=== PATIENT | male | born 1975 | race Caucasian/White ===

== ENCOUNTER 2019-11-11 12:19 | Inpatient (IN) | payer OTHER ==
--- NOTE | 2019-11-11 14:38 | BHS.RME ---
Substance Use & Tx History - Substance Use History Alcohol Substance amount: 2 pints Vodka Frequency of use: Daily Substance route: Oral Date of Last Use: 11/11/19 (First use age 12 y. No seizue. Possible black outs. Admits to eye integration lead) Heroin Substance amount: 6-10 bags Frequency of use: Daily Substance route: Injection (ex: intravenous or skin popping) Date of Last Use: 11/11/19 (First use age 19y. NO OD, no Narcan) Cocaine-Crack Substance amount: 4 gabs Frequency of use: Less than 3 times per week Substance route: Smoking Date of Last Use: 11/09/19 (First use age 20y) Nicotine Substance amount: 1/2 pack Frequency of use: Daily Substance route: Smoking Date of Last Use: 11/11/19 (First use age 12 y) - Last Treatment Date of last treatment: 5 mos ago [facility], 2 day detox and left Physical/Psych/Mental Status - Behavior General Behavior: Increased activity (restlessness, agitation) Eye Contact: Normal - Cooperativeness Cooperativeness: Cooperative - Thinking Thought Processes: Tight Thought content: Future oriented - Physical Health Problems Is patient presently having any pain?: No Does patient presently have any injuries (include location): No Does patient currently have a fever: No COWS - Scale Resting Pulse: 1= [place] 81-100 Sweatin= Chills/Flushing Restless Observation: 1= Difficult to Sit Still Pupil Size: 0= Normal to Room Light Bone or Joint Aches: 1= Mild Discomfort Runny Nose/ Eye Tearin= None GI Upset > 30mins: 2= Nausea/Diarrhea Tremor Observation: 0= None Yawning Observation: 0= None Anxiety or Irritability: 0= None Goose Flesh Skin: 0=Smooth Skin COWS Score: 6 CIWA Nausea/Vomitin Muscle Tremors: None Anxiety: 0-No Anxiety, at Ease Agitation: 0-Normal Activity Paroxysmal Sweats: 2 Orientation: 0-Oriented Tacttile Disturbances: 0-None Auditory Disturbances: 2-Mild Harshness/Frighten Visual Disturbances: 2-Mild Sensitivity Headache: 0-None Present CIWA-Ar Total Score: 9
[2019-11-11 14:58] VITALS: BMI 20.9
--- NOTE | 2019-11-11 15:22 | HP ---
<Merry Roberson - Last Filed: 11/11/19 15:33> COWS - Scale Resting Pulse: 1= [place] 81-100 Sweatin= Chills/Flushing Restless Observation: 1= Difficult to Sit Still Pupil Size: 0= Normal to Room Light Bone or Joint Aches: 1= Mild Discomfort Runny Nose/ Eye Tearin= None GI Upset > 30mins: 2= Nausea/Diarrhea Tremor Observation: 0= None Yawning Observation: 0= None Anxiety or Irritability: 0= None Goose Flesh Skin: 0=Smooth Skin COWS Score: 6 CIWA Score Nausea/Vomitin Muscle Tremors: None Anxiety: 0-No Anxiety, at Ease Agitation: 0-Normal Activity Paroxysmal Sweats: 2 Orientation: 0-Oriented Tacttile Disturbances: 0-None Auditory Disturbances: 2-Mild Harshness/Frighten Visual Disturbances: 2-Mild Sensitivity Headache: 0-None Present CIWA-Ar Total Score: 9 - Admission Criteria [facility] Guidelines: Admission for Medically Managed Detox: Requires at least one of the followin. CIWA greater than 12 2. Seizures within the past 24 hours 3. Delirium tremens within the past 24 hours 4. Hallucinations within the past 24 hours 5. Acute intervention needed for co occurring medical disorder 6. Acute intervention needed for co occurring psychiatric disorder 7. Severe withdrawal that cannot be handled at a lower level of care (continued vomiting, continued diarrhea, abnormal vital signs) requiring intravenous medication and/or fluids 8. Admitting History and Physical - Admission Chief Complaint: Mr Sandoval a 44 yo man presents to [facility] for detox. History of Present Illness: Mr Sandoval a 44 yo man presents to [facility] for detox. PMH: Hepatitis C untrested PSH: Left eye; had a weak muscle treated as child. Psych Hx: None SHX: Homeless Legal: None Substance Use & Tx History - Substance Use History Alcohol Substance amount: 2 pints Vodka Frequency of use: Daily Substance route: Oral Date of Last Use: 11/11/19 (First use age 12 y. No seizue. Possible black outs. Admits to eye market research coordinator) Heroin Substance amount: 6-10 bags Frequency of use: Daily Substance route: Injection (ex: intravenous or skin popping) Date of Last Use: 11/11/19 (First use age 19y. NO OD, no Narcan) Cocaine-Crack Substance amount: 4 gabs Frequency of use: Less than 3 times per week Substance route: Smoking Date of Last Use: 11/09/19 (First use age 20y) Nicotine Substance amount: 1/2 pack Frequency of use: Daily Substance route: Smoking Date of Last Use: 11/11/19 (First use age 12 y) - Last Treatment Date of last treatment: 5 mos ago [facility], 2 day detox and left History Source: Patient Limitations to Obtaining History: No Limitations - Smoking History Smoking history: Current every day smoker Have you smoked in the past 12 months: Yes Aproximately how many cigarettes per day: 10 - Alcohol/Substance Use Hx Alcohol Use: Yes (occasional binge drinking) Admission [facility] Allergies/Adverse Reactions: Allergies Allergy/AdvReac Type Severity Reaction Status Date / Time No Known Allergies Allergy Verified 11/11/19 14:47 Exam Limitations: No Limitations - Ebola screening Have you traveled outside of the country in the last 21 days: No Have you been sick,other than usual withdrawal symptoms: No Do you have a fever: No - Review of Systems Constitutional: Chills EENT: reports: No Symptoms Reported Respiratory: reports: No Symptoms reported Cardiac: reports: No Symptoms Reported GI: reports: No Symptoms Reported : reports: No Symptoms Reported Musculoskeletal: reports: No Symptoms Reported Integumentary: reports: No Symptoms Reported Neuro: reports: No Symptoms reported Endocrine: reports: No Symptoms Reported Hematology: reports: No Symptoms Reported Psychiatric: reports: No Sypmtoms Reported Other Systems: Reviewed and Negative Patient History - Patient Medical History Hx Anemia: No Hx Asthma: No Hx Chronic Obstructive Pulmonary Disease (COPD): No Hx Cancer: No Hx Cardiac Disorders: No Hx Congestive Heart Failure: No Hx Hypertension: No Hx Hypercholesterolemia: No Hx Pacemaker: No HX Cerebrovascular Accident: No Hx Seizures: No Hx Dementia: No Hx Diabetes: No Hx Gastrointestinal Disorders: No Hx Liver Disease: No Hx Genitourinary Disorders: No Hx Sexually Transmitted Disorders: No Hx Renal Disease (ESRD): No Hx Thyroid Disease: No Hx Human Immunodeficiency Virus (HIV): No Hx Hepatitis C: Yes Hx Depression: No Hx Suicide Attempt: No Hx Schizophrenia: No - Patient Surgical History Past Surgical History: No Hx Neurologic Surgery: No Hx Cataract Extraction: No Hx Cardiac Surgery: No Hx Lung Surgery: No Hx Breast Surgery: No Hx Breast Biopsy: No Hx Abdominal Surgery: No Hx Appendectomy: No Hx Cholecystectomy: No Hx Genitourinary Surgery: No Hx Section: No Hx Orthopedic Surgery: No Anesthesia Reaction: No - PPD History Previous Implant?: No Documented Results: Negative w/o proof Date: 08/06/13 PPD to be Administered?: Yes - Smoking Cessation Smoking history: Current every day smoker Have you smoked in the past 12 months: Yes Aproximately how many cigarettes per day: 10 Cigars Per Day: 0 Hx Chewing Tobacco Use: No Initiated information on smoking cessation: Yes 'Breaking Loose' booklet given: 11/11/19 - Substance & Tx. History Hx Substance Use: Yes - Substances abused Heroin Substance route: Injection Frequency: Daily Amount used: 6-7 BAGS Age of first use: 19 Date of last use: 11/11/19 Admission Physical Exam [facility] - Vital Signs Vital Signs: Vital Signs - 24 hr 11/11/19 14:55 Temperature 97.1 F L Pulse Rate 85 Respiratory 18 Rate Blood Pressure 125/79 - Physical General Appearance: Yes: No Apparent Distress, Nourished, Appropriately Dressed HEENTM: Yes: Within Normal Limits, Hearing grossly Normal, Normocephalic, Normal Voice Respiratory: Yes: Within Normal Limits, Chest Non-Tender, Lungs Clear, Normal Br eath Sounds, No Respiratory Distress, No Accessory Muscle Use Neck: Yes: Within Normal Limits, No masses,lesions,Nodules, Supple, Trachea in good position Cardiology: Yes: Within Normal Limits, Regular Rhythm, Regular Rate, S1, S2 Abdominal: Yes: Within Normal Limits, Normal Bowel Sounds, Non Tender, Flat, Soft Back: Yes: Within Normal Limits, Normal Inspection Musculoskeletal: Yes: Within Normal Limits Neurological: Yes: Fully Oriented Integumentary: Yes: Within Normal Limits, Normal Color - Diagnostic (1) Opioid withdrawal Current Visit: Yes Status: Acute (2) Cocaine dependence Current Visit: Yes Status: Acute (3) Hepatitis C Current Visit: Yes Status: Chronic (4) Nicotine dependence Current Visit: Yes Status: Acute Qualifiers: Nicotine product type: cigarettes Substance use status: uncomplicated Qualified Code(s): F17.210 - Nicotine dependence, cigarettes, uncomplicated (5) Alcohol dependence with withdrawal, uncomplicated Current Visit: Yes Status: Acute Cleared for Admission S - Detox or Rehab [facility] Level of Care: Medically Managed Detox Regimen/Protocol: Methadone/Librium Breathalyzer - Breathalyzer Breathalyzer: 0 Urine Drug Screen - Test Device Lot number: [id number] Expiration date: 01/10/21 - Control Is test valid?: Yes - Results Drug screen NEGATIVE: No Urine drug screen results: DONN-Cocaine, FEN-Fentanyl, MOP-Opiates Inpatient Rehab Admission - Rehab Decision to Admit Inpatient rehab admission?: No <Priya Alegria - Last Filed: 11/12/19 08:08> CIWA Score - Admission Criteria [facility] Guidelines: Admission for Medically Managed Detox: Requires at least one of the followin. CIWA greater than 12 2. Seizures within the past 24 hours 3. Delirium tremens within the past 24 hours 4. Hallucinations within the past 24 hours 5. Acute intervention needed for co occurring medical disorder 6. Acute intervention needed for co occurring psychiatric disorder 7. Severe withdrawal that cannot be handled at a lower level of care (continued vomiting, continued diarrhea, abnormal vital signs) requiring intravenous medication and/or fluids 8. Admission Physical Exam [facility] - Vital Signs Vital Signs: Vital Signs - 24 hr 11/11/19 11/11/19 11/11/19 14:55 16:30 20:35 Temperature 97.1 F L 98.4 F 98.7 F Pulse Rate 85 80 82 Respiratory 18 18 18 Rate Blood Pressure 125/79 127/80 127/91 O2 Sat by Pulse 95 97 Oximetry (%) 11/12/19 11/12/19 11/12/19 01:02 03:30 06:43 Temperature 98.2 F Pulse Rate 71 Respiratory 16 18 16 Rate Blood Pressure 132/81 O2 Sat by Pulse 95 Oximetry (%) Teaching Attending Note Name of Resident: Merry Roberson ATTENDING PHYSICIAN STATEMENT I saw and evaluated the patient. I reviewed the resident's note and discussed the case with the resident. I agree with the resident's findings and plan as documented. SUBJECTIVE: Alcohol and heroin use OBJECTIVE: Withdrawal symptoms ASSESSMENT AND PLAN: Admit for methadone and librium protocol
[2019-11-11] MEDS ORDERED: chlordiazePOXIDE HCL 25 MG CAPSULE PO PRN (15:55)
[2019-11-11] MEDS ORDERED: BISMUTH SUBSALICYLATE 524 MG/30 ML UD PO PRN (15:55)
[2019-11-11] MEDS ORDERED: ONDANSETRON *ODT* 4 MG TABLET SL PRN (15:55)
[2019-11-11] MEDS ORDERED: MAG HYDROX/AL HYDROX/SIMETH 30 ML UNIT-DOSE CUP PO PRN (15:55)
[2019-11-11] MEDS ORDERED: ACETAMINOPHEN 325 MG TABLET (FP) PO PRN ×2 (15:55)
[2019-11-11] MEDS ORDERED: METHOCARBAMOL 500 MG TABLET PO PRN (15:55)
[2019-11-11] MEDS ORDERED: NICOTINE POLACRILEX 2 MG GUM BUC PRN (15:55)
[2019-11-11] MEDS ORDERED: MAGNESIUM CITRATE 300 ML BOTTLE PO PRN (15:55)
[2019-11-11] MEDS ORDERED: cloNIDine HCL 0.1 MG TABLET PO PRN (15:55)
[2019-11-11] MEDS ORDERED: METHADONE HCL 10 MG TABLET (FOR DETOX USE ONLY) PO ONE (15:55)
[2019-11-11] MEDS ORDERED: MENTHOL/PHENOL 1 EACH UD MM PRN (15:55)
[2019-11-11] MEDS ORDERED: MAGNESIUM HYDROX 2400MG/30ML ORAL SUSPENSION 30 ML CUP PO PRN (15:55)
[2019-11-11] MEDS ORDERED: IBUPROFEN 400 MG TABLET (FP) PO PRN (15:55)
[2019-11-11] MEDS ORDERED: TUBERCULIN PPD 5 TU/0.1ML VIAL ID ONE (17:00)
[2019-11-11] MEDS: hydrOXYzine PAMOATE 25 MG CAPSULE (FP) PO SCH ×2 (17:02→22:18)
[2019-11-11] MEDS: chlordiazePOXIDE HCL 25 MG CAPSULE PO SCH ×2 (17:02→22:19)
[2019-11-11] MEDS: NICOTINE 14 MG/24 HOURS TOPICAL PATCH TD SCH (17:02)
[2019-11-11] MEDS: PRENATAL VITAMINS W/ FOLIC ACID TABLET (FP) PO SCH (17:09)
[2019-11-11] MEDS: MELATONIN 5 MG TABLETS PO SCH (22:18)
[2019-11-11] MEDS: THIAMINE HCL 100 MG TABLET (FP) PO SCH (22:19)
[2019-11-12] MEDS: hydrOXYzine PAMOATE 25 MG CAPSULE (FP) PO SCH ×5 (06:59→23:25)
[2019-11-12] MEDS: chlordiazePOXIDE HCL 25 MG CAPSULE PO SCH ×2 (07:00→10:29)
[2019-11-12] MEDS ORDERED: METHADONE HCL 5 MG TABLET (FOR DETOX USE ONLY) ONE (08:23)
[2019-11-12] MEDS ORDERED: METHADONE HCL 10 MG TABLET (FOR DETOX USE ONLY) ONE (08:23)
[2019-11-12] MEDS ORDERED: METHADONE (DETOX) 20 MG, METHADONE (DETOX) 5 MG PO ONE (10:00)
[2019-11-12] MEDS: NICOTINE 14 MG/24 HOURS TOPICAL PATCH TD SCH (10:28)
[2019-11-12] MEDS: PRENATAL VITAMINS W/ FOLIC ACID TABLET (FP) PO SCH (10:28)
[2019-11-12 10:42] LABS: ALBUMIN 3.3 g/dl (3.4-5.0); BILIRUBIN,TOTAL 2.2 mg/dL (0.2-1); BLOOD UREA NITROGEN 9.4 mg/dL (7-18); CALCIUM 9.2 mg/dL (8.5-10.1); CREATININE 0.7 mg/dL (0.55-1.3)
[2019-11-12 10:47] LABS: HEMATOCRIT 42.1 % (35.4-49); HEMOGLOBIN 13.8 GM/dL (11.7-16.9); MCH 30.6 pg (25.7-33.7); MCHC 32.9 g/dl (32.0-35.9); MEAN CELL VOLUME 93.3 fl (80-96); MEAN PLT VOLUME 12.1 fl (7.5-11.1); PLATELET COUNT 167 K/MM3 (134-434); RBC 4.51 M/mm3 (4.00-5.60); RDW 15.8 % (11.9-15.9); WHITE BLOOD COUNT 5.5 K/mm3 (4.0-10.0)
--- NOTE | 2019-11-12 11:25 | PN ---
[facility] CIWA - CIWA Score Nausea/Vomitin-No Nausea/No Vomiting Muscle Tremors: 3 Anxiety: 4-Mod. Anxious/Guarded Agitation: 4-Moderately Restless Paroxysmal Sweats: 1-Minimal Palms Moist Orientation: 0-Oriented Tacttile Disturbances: 0-None Auditory Disturbances: 0-None Visual Disturbances: 0-None Headache: 0-None Present CIWA-Ar Total Score: 12 S COWS - Scale Resting Pulse: 0= [place] 80 or Below Sweatin= Chills/Flushing Restless Observation: 3= Extraneous Movement Pupil Size: 0= Normal to Room Light Bone or Joint Aches: 1= Mild Discomfort Runny Nose/ Eye Tearin= None GI Upset > 30mins: 0= None Tremor Observation of Outstretched Hands: 2= Slight Tremor Visible Yawning Observation: 0= None Anxiety or Irritability: 1=Feels Anxious/Irritable Goose Flesh Skin: 0=Smooth Skin COWS Score: 8 S Progress Note (SOAP) Subjective: Pt is a 44 y/o male admitted to detox for alcohol and heroin withdrawal sx. Pt on Meth/Stephanie regimen. c/o Tremors anxiety sweats chills Objective: 11/12/19 11:22 Vital Signs - 8 hr 11/12/19 11/12/19 03:30 06:43 Temperature 98.2 F Pulse Rate 71 Respiratory 18 16 Rate Blood Pressure 132/81 O2 Sat by Pulse 95 Oximetry (%) Laboratory Tests 11/11/19 11/12/19 11/12/19 15:30 08:30 08:30 WBC 5.5 RBC 4.51 Hgb 13.8 Hct 42.1 MCV 93.3 MCH 30.6 MCHC 32.9 RDW 15.8 D Plt Count 167 D MPV 12.1 H D Sodium 136 Potassium 4.0 Chloride 98 Carbon Dioxide 30 Anion Gap 7 L BUN 9.4 Creatinine 0.7 Est GFR (CKD-EPI)AfAm 132.09 Est GFR (CKD-EPI)NonAf 113.97 Random Glucose 107 H Calcium 9.2 Total Bilirubin 2.2 H AST 433 H ALT 361 H Alkaline Phosphatase 163 H Total Protein 8.0 Albumin 3.3 L HIV Ag/Ab Combo Qual Negative labs noted covid-19 result pending Alert o x 3 nad oob ambulating with steady gait Assessment: 11/12/19 11:23 withdrawal sx Elevated Liver enzymes Plan: cont detox increase po fluids maintain safety Repeat CMP D/C Librium protocol Start Ativan regimen due to elevated Transaminases and Bilirubin.
--- NOTE | 2019-11-12 14:09 | EKG ---
Test Reason : Blood Pressure : / mmHG Vent. Rate : 090 BPM Atrial Rate : 090 BPM P-R Int : 130 ms QRS Dur : 090 ms QT Int : 362 ms P-R-T Axes : 074 076 066 degrees QTc Int : 442 ms NORMAL SINUS RHYTHM MINIMAL VOLTAGE CRITERIA FOR LVH, MAY BE NORMAL VARIANT BORDERLINE ECG NO PREVIOUS ECGS AVAILABLE Confirmed by LANDRY VILLARREAL MD ([id number]) on 11/12/2019 2:08:52 PM Referred By: Confirmed By:LANDRY VILLARREAL MD
[2019-11-12] MEDS ORDERED: LORazepam 1 MG TABLET PO PRN (14:39)
[2019-11-12] MEDS: LORazepam 2 MG TABLET PO SCH ×2 (18:39→23:25)
[2019-11-12] MEDS: THIAMINE HCL 100 MG TABLET (FP) PO SCH (23:25)
[2019-11-12] MEDS: MELATONIN 5 MG TABLETS PO SCH (23:25)
[2019-11-13] MEDS ORDERED: chlordiazePOXIDE HCL 25 MG CAPSULE PO SCH (05:00)
[2019-11-13] MEDS: LORazepam 1 MG TABLET PO SCH ×4 (06:55→22:28)
[2019-11-13] MEDS: hydrOXYzine PAMOATE 25 MG CAPSULE (FP) PO SCH ×5 (06:56→22:28)
[2019-11-13] MEDS ORDERED: METHADONE HCL 10 MG TABLET (FOR DETOX USE ONLY) PO ONE (10:00)
[2019-11-13] MEDS: PRENATAL VITAMINS W/ FOLIC ACID TABLET (FP) PO SCH (10:42)
[2019-11-13] MEDS: NICOTINE 14 MG/24 HOURS TOPICAL PATCH TD SCH (10:43)
--- NOTE | 2019-11-13 14:58 | PN ---
[facility] CIWA - CIWA Score Nausea/Vomitin-No Nausea/No Vomiting Muscle Tremors: 3 Anxiety: 3 Agitation: 2 Paroxysmal Sweats: 1-Minimal Palms Moist Orientation: 0-Oriented Tacttile Disturbances: 0-None Auditory Disturbances: 0-None Visual Disturbances: 0-None Headache: 0-None Present CIWA-Ar Total Score: 9 S COWS - Scale Resting Pulse: 1= [place] 81-100 Sweatin= Chills/Flushing Restless Observation: 0= Sits Still Pupil Size: 0= Normal to Room Light Bone or Joint Aches: 4=Acute Joint/Muscle Pain Runny Nose/ Eye Tearin= None GI Upset > 30mins: 0= None Tremor Observation of Outstretched Hands: 0= None Yawning Observation: 0= None Anxiety or Irritability: 0= None Goose Flesh Skin: 0=Smooth Skin COWS Score: 6 [facility] Progress Note (SOAP) Subjective: c/o fatigue bodyaches tremors "tossed/turned"-intermittent sleep. Objective: 11/13/19 14:55 Vital Signs - 24 hr 11/12/19 11/12/19 11/13/19 16:55 20:35 00:30 Temperature 98.4 F 98.6 F Pulse Rate 82 95 H Respiratory 18 18 18 Rate Blood Pressure 131/82 137/84 O2 Sat by Pulse 97 Oximetry (%) 11/13/19 11/13/19 11/13/19 03:30 06:38 08:55 Temperature 98.1 F 97.2 F L Pulse Rate 84 99 H Respiratory 16 18 18 Rate Blood Pressure 114/72 122/82 O2 Sat by Pulse 92 L Oximetry (%) Laboratory Tests 11/11/19 11/12/19 11/12/19 15:30 08:30 08:30 WBC 5.5 RBC 4.51 Hgb 13.8 Hct 42.1 MCV 93.3 MCH 30.6 MCHC 32.9 RDW 15.8 D Plt Count 167 D MPV 12.1 H D Sodium 136 Potassium 4.0 Chloride 98 Carbon Dioxide 30 Anion Gap 7 L BUN 9.4 Creatinine 0.7 Est GFR (CKD-EPI)AfAm 132.09 Est GFR (CKD-EPI)NonAf 113.97 Random Glucose 107 H Calcium 9.2 Total Bilirubin 2.2 H AST 433 H ALT 361 H Alkaline Phosphatase 163 H Total Protein 8.0 Albumin 3.3 L Syphilis Serology HIV Ag/Ab Combo Qual Negative 11/12/19 08:30 WBC RBC Hgb Hct MCV MCH MCHC RDW Plt Count MPV Sodium Potassium Chloride Carbon Dioxide Anion Gap BUN Creatinine Est GFR (CKD-EPI)AfAm Est GFR (CKD-EPI)NonAf Random Glucose Calcium Total Bilirubin AST ALT Alkaline Phosphatase Total Protein Albumin Syphilis Serology Non-reactive HIV Ag/Ab Combo Qual covid result pending Alert o x 3 nad oob ambulating with steady gait Assessment: 11/13/19 14:56 withdrawal sx Plan: continue detox increase po fluids maintain safety CMP and INR in the morning;UA
[2019-11-13] MEDS: MELATONIN 5 MG TABLETS PO SCH (22:28)
[2019-11-13] MEDS: THIAMINE HCL 100 MG TABLET (FP) PO SCH (22:48)
[2019-11-14] MEDS ORDERED: LORazepam 0.5 MG TABLET PO PRN
[2019-11-14] MEDS ORDERED: chlordiazePOXIDE HCL 10 MG CAPSULE PO PRN
[2019-11-14] MEDS ORDERED: chlordiazePOXIDE HCL 10 MG CAPSULE PO SCH (05:00)
[2019-11-14] MEDS: LORazepam 0.5 MG TABLET PO SCH ×4 (06:49→22:01)
[2019-11-14] MEDS: hydrOXYzine PAMOATE 25 MG CAPSULE (FP) PO SCH ×5 (06:49→22:01)
[2019-11-14] MEDS ORDERED: METHADONE HCL 10 MG TABLET (FOR DETOX USE ONLY) ONE (09:01)
[2019-11-14] MEDS ORDERED: METHADONE HCL 5 MG TABLET (FOR DETOX USE ONLY) ONE (09:02)
[2019-11-14] MEDS ORDERED: METHADONE (DETOX) 10 MG, METHADONE (DETOX) 5 MG PO ONE (10:00)
[2019-11-14 10:12] LABS: INR 1.58 (0.83-1.09); PROTHROMBIN TIME (PATIENT) 18.7 SEC (9.7-13.0)
[2019-11-14 10:13] LABS: BLOOD UREA NITROGEN 11.9 mg/dL (7-18); CALCIUM 9.3 mg/dL (8.5-10.1); CREATININE 0.8 mg/dL (0.55-1.3); POTASSIUM 4.1 mmol/L (3.5-5.1); TOT PROT 7.8 g/dl (6.4-8.2)
[2019-11-14] MEDS: PRENATAL VITAMINS W/ FOLIC ACID TABLET (FP) PO SCH (10:28)
[2019-11-14] MEDS: NICOTINE 14 MG/24 HOURS TOPICAL PATCH TD SCH (10:29)
[2019-11-14 12:33] LABS: URINE APPEARANCE CLEAR; URINE BILIRUBIN SMALL (NEGATIVE); URINE COLOR DK YELLOW; URINE GLUCOSE (UA) NEGATIVE (NEGATIVE)
[2019-11-14 12:34] LABS: URINE KETONE NEGATIVE (NEGATIVE); URINE LEUK ESTERASE NEGATIVE (NEGATIVE); URINE NITRITE NEGATIVE (NEGATIVE); URINE PROTEIN NEGATIVE (NEGATIVE)
[2019-11-14 12:35] LABS: EPI CELLS 1.7 /uL (0-25.1); HYALINE CASTS 0.89 /uL (0-3.1); URINE BACTERIA 16.2 /uL (0-1359); URINE RBC 13.3 /uL (0-23.9); URINE WBC 4.2 /uL (0-25.8)
--- NOTE | 2019-11-14 16:02 | PN ---
[facility] CIWA - CIWA Score Nausea/Vomitin-No Nausea/No Vomiting Muscle Tremors: 3 Anxiety: 3 Agitation: 0-Normal Activity Paroxysmal Sweats: No Perspiration Orientation: 0-Oriented Tacttile Disturbances: 0-None Auditory Disturbances: 1-Very Mild Visual Disturbances: 2-Mild Sensitivity Headache: 0-None Present CIWA-Ar Total Score: 9 [facility] COWS - Scale Resting Pulse: 1= [place] 81-100 Sweatin= No chills or Flushing Restless Observation: 0= Sits Still Pupil Size: 0= Normal to Room Light Bone or Joint Aches: 2= Severe Diffuse Aches Runny Nose/ Eye Tearin= None GI Upset > 30mins: 0= None Tremor Observation of Outstretched Hands: 2= Slight Tremor Visible Yawning Observation: 1= 1-2x During Session Anxiety or Irritability: 2=Irritable/Anxious Goose Flesh Skin: 0=Smooth Skin COWS Score: 8 [facility] Progress Note (SOAP) Subjective: Body Aches, Fatigue, Tremors, Anxious. Objective: Patient A & O X 3; In No Acute Distress. 11/14/19 15:59 Vital Signs Temperature 98.1 F 11/14/19 12:49 Pulse Rate 88 11/14/19 12:49 Respiratory Rate 18 11/14/19 12:49 Blood Pressure 110/76 11/14/19 12:49 O2 Sat by Pulse Oximetry (%) 98 11/14/19 12:49 Laboratory Tests 11/11/19 11/11/19 11/12/19 10:50 15:30 08:30 WBC 5.5 RBC 4.51 Hgb 13.8 Hct 42.1 MCV 93.3 MCH 30.6 MCHC 32.9 RDW 15.8 D Plt Count 167 D MPV 12.1 H D PT with INR INR Sodium Potassium Chloride Carbon Dioxide Anion Gap BUN Creatinine Est GFR (CKD-EPI)AfAm Est GFR (CKD-EPI)NonAf Random Glucose Calcium Total Bilirubin AST ALT Alkaline Phosphatase Total Protein Albumin Urine Color Urine Appearance Urine pH Ur Specific Tolar Urine Protein Urine Glucose (UA) Urine Ketones Urine Blood Urine Nitrite Urine Bilirubin Urine Urobilinogen Ur Leukocyte Esterase Urine WBC (Auto) Urine RBC (Auto) Urine Casts (Auto) U Epithel Cells (Auto) Urine Bacteria (Auto) Syphilis Serology COVID-19 ([facility]) Not detected HIV Ag/Ab Combo Qual Negative 11/12/19 11/12/19 11/14/19 08:30 08:30 07:30 WBC RBC Hgb Hct MCV MCH MCHC RDW Plt Count MPV PT with INR INR Sodium 136 136 Potassium 4.0 4.1 Chloride 98 103 Carbon Dioxide 30 27 Anion Gap 7 L 6 L BUN 9.4 11.9 Creatinine 0.7 0.8 Est GFR (CKD-EPI)AfAm 132.09 125.04 Est GFR (CKD-EPI)NonAf 113.97 107.88 Random Glucose 107 H 116 H Calcium 9.2 9.3 Total Bilirubin 2.2 H 2.0 H AST 433 H 390 H ALT 361 H 373 H Alkaline Phosphatase 163 H 154 H Total Protein 8.0 7.8 Albumin 3.3 L 3.0 L Urine Color Urine Appearance Urine pH Ur Specific Tolar Urine Protein Urine Glucose (UA) Urine Ketones Urine Blood Urine Nitrite Urine Bilirubin Urine Urobilinogen Ur Leukocyte Esterase Urine WBC (Auto) Urine RBC (Auto) Urine Casts (Auto) U Epithel Cells (Auto) Urine Bacteria (Auto) Syphilis Serology Non-reactive COVID-19 ([facility]ELITO) HIV Ag/Ab Combo Qual 11/14/19 11/14/19 07:30 09:15 WBC RBC Hgb Hct MCV MCH MCHC RDW Plt Count MPV PT with INR 18.70 H INR 1.58 H Sodium Potassium Chloride Carbon Dioxide Anion Gap BUN Creatinine Est GFR (CKD-EPI)AfAm Est GFR (CKD-EPI)NonAf Random Glucose Calcium Total Bilirubin AST ALT Alkaline Phosphatase Total Protein Albumin Urine Color Dk yellow Urine Appearance Clear Urine pH 6.0 Ur Specific Tolar 1.023 Urine Protein Negative Urine Glucose (UA) Negative Urine Ketones Negative Urine Blood Negative Urine Nitrite Negative Urine Bilirubin Small Urine Urobilinogen 2.0 Ur Leukocyte Esterase Negative Urine WBC (Auto) 4.2 Urine RBC (Auto) 13.3 Urine Casts (Auto) 0.89 U Epithel Cells (Auto) 1.7 Urine Bacteria (Auto) 16.2 Syphilis Serology COVID-19 (DANIELITO) HIV Ag/Ab Combo Qual Lab Results Noted. Results of Repeat CMP noted. Mild reduction in total Bilirubin and in AST, ALT, and in AP noted. Patient reported history of Hep C on Detox admission laboratory assessment. He d enied known history of any other Hepatic disorder when asked today. 07/04/20 16:01 Assessment: 11/14/19 16:03 WITHDRAWAL SYMPTOMS. ELEVATED AST LEVEL. ELEVATED ALT LEVEL. ELEVATED AP LEVEL. HYPERBILIRUBINEMIA. Plan: Continue Detox. Patient advised to follow-up with INSTALLATION AND SERVICE TECHNICIAN after Discharge from Detox for general medical assessment and for elevated liver enzymes and total Bilirubin levels noted on Detox Admission and Repeat laboratory assessments. Patient verbalized understanding of recommendation. Copies of results of labs drawn while admitted for detox given to patient at time of discharge from detox unit.
[2019-11-14] MEDS: MELATONIN 5 MG TABLETS PO SCH (22:01)
[2019-11-14] MEDS: THIAMINE HCL 100 MG TABLET (FP) PO SCH (22:01)
[2019-11-15] MEDS ORDERED: chlordiazePOXIDE HCL 10 MG CAPSULE PO SCH (05:00)
[2019-11-15] MEDS: LORazepam 0.5 MG TABLET PO SCH (06:24)
[2019-11-15] MEDS: hydrOXYzine PAMOATE 25 MG CAPSULE (FP) PO SCH ×5 (06:24→21:12)
[2019-11-15] MEDS ORDERED: METHADONE HCL 10 MG TABLET (FOR DETOX USE ONLY) PO ONE (10:00)
[2019-11-15] MEDS: PRENATAL VITAMINS W/ FOLIC ACID TABLET (FP) PO SCH (10:23)
[2019-11-15] MEDS: NICOTINE 14 MG/24 HOURS TOPICAL PATCH TD SCH (10:24)
--- NOTE | 2019-11-15 13:30 | PN ---
S CIWA - CIWA Score Nausea/Vomitin-Mild Nausea/No Vomiting Muscle Tremors: 1-None Visible, but [place] Anxiety: 1-Mildly Anxious Agitation: 1-Slight > Activity Paroxysmal Sweats: 1-Minimal Palms Moist Orientation: 0-Oriented Tacttile Disturbances: 0-None Auditory Disturbances: 0-None Visual Disturbances: 0-None Headache: 1-Very Mild CIWA-Ar Total Score: 6 S COWS - Scale Resting Pulse: 1= [place] 81-100 Sweatin= No chills or Flushing Restless Observation: 0= Sits Still Pupil Size: 0= Normal to Room Light Bone or Joint Aches: 1= Mild Discomfort Runny Nose/ Eye Tearin= None GI Upset > 30mins: 2= Nausea/Diarrhea Tremor Observation of Outstretched Hands: 1= Tremor [place], Not Seen Yawning Observation: 0= None Anxiety or Irritability: 0= None Goose Flesh Skin: 0=Smooth Skin COWS Score: 5 S Progress Note (SOAP) Subjective: 44 years old male admitted on 11/11/19 for alcohol and opiate withdrawal sx management treating with ativan and methadone detox regiment feeling better today less tremor mild restlessness mr wallace sets housing as priority instead of substance abuse disorder encourage discussing aftercare with staff Objective: 11/15/19 13:33 Vital Signs - 24 hr 11/14/19 11/14/19 11/15/19 16:35 20:20 03:30 Temperature 98.2 F 98.9 F Pulse Rate 85 87 Respiratory 20 18 18 Rate Blood Pressure 93/69 110/76 O2 Sat by Pulse 96 Oximetry (%) 11/15/19 11/15/19 11/15/19 06:19 09:06 12:35 Temperature 97.8 F 97.1 F L 97.7 F Pulse Rate 87 90 90 Respiratory 16 18 18 Rate Blood Pressure 119/74 114/84 107/72 O2 Sat by Pulse 98 Oximetry (%) Laboratory Tests 11/11/19 11/11/19 11/12/19 10:50 15:30 08:30 WBC 5.5 RBC 4.51 Hgb 13.8 Hct 42.1 MCV 93.3 MCH 30.6 MCHC 32.9 RDW 15.8 D Plt Count 167 D MPV 12.1 H D PT with INR INR Sodium Potassium Chloride Carbon Dioxide Anion Gap BUN Creatinine Est GFR (CKD-EPI)AfAm Est GFR (CKD-EPI)NonAf Random Glucose Calcium Total Bilirubin AST ALT Alkaline Phosphatase Total Protein Albumin Urine Color Urine Appearance Urine pH Ur Specific [place] Urine Protein Urine Glucose (UA) Urine Ketones Urine Blood Urine Nitrite Urine Bilirubin Urine Urobilinogen Ur Leukocyte Esterase Urine WBC (Auto) Urine RBC (Auto) Urine Casts (Auto) U Epithel Cells (Auto) Urine Bacteria (Auto) Syphilis Serology COVID-19 (DANIELITO) Not detected HIV Ag/Ab Combo Qual Negative 11/12/19 11/12/19 11/14/19 08:30 08:30 07:30 WBC RBC Hgb Hct MCV MCH MCHC RDW Plt Count MPV PT with INR INR Sodium 136 136 Potassium 4.0 4.1 Chloride 98 103 Carbon Dioxide 30 27 Anion Gap 7 L 6 L BUN 9.4 11.9 Creatinine 0.7 0.8 Est GFR (CKD-EPI)AfAm 132.09 125.04 Est GFR (CKD-EPI)NonAf 113.97 107.88 Random Glucose 107 H 116 H Calcium 9.2 9.3 Total Bilirubin 2.2 H 2.0 H AST 433 H 390 H ALT 361 H 373 H Alkaline Phosphatase 163 H 154 H Total Protein 8.0 7.8 Albumin 3.3 L 3.0 L Urine Color Urine Appearance Urine pH Ur Specific [place] Urine Protein Urine Glucose (UA) Urine Ketones Urine Blood Urine Nitrite Urine Bilirubin Urine Urobilinogen Ur Leukocyte Esterase Urine WBC (Auto) Urine RBC (Auto) Urine Casts (Auto) U Epithel Cells (Auto) Urine Bacteria (Auto) Syphilis Serology Non-reactive COVID-19 (DANIELITO) HIV Ag/Ab Combo Qual 11/14/19 11/14/19 07:30 09:15 WBC RBC Hgb Hct MCV MCH MCHC RDW Plt Count MPV PT with INR 18.70 H INR 1.58 H Sodium Potassium Chloride Carbon Dioxide Anion Gap BUN Creatinine Est GFR (CKD-EPI)AfAm Est GFR (CKD-EPI)NonAf Random Glucose Calcium Total Bilirubin AST ALT Alkaline Phosphatase Total Protein Albumin Urine Color Dk yellow Urine Appearance Clear Urine pH 6.0 Ur Specific [place] 1.023 Urine Protein Negative Urine Glucose (UA) Negative Urine Ketones Negative Urine Blood Negative Urine Nitrite Negative Urine Bilirubin Small Urine Urobilinogen 2.0 Ur Leukocyte Esterase Negative Urine WBC (Auto) 4.2 Urine RBC (Auto) 13.3 Urine Casts (Auto) 0.89 U Epithel Cells (Auto) 1.7 Urine Bacteria (Auto) 16.2 Syphilis Serology COVID-19 (DANIELITO) HIV Ag/Ab Combo Qual ast elevation inr elevation related to alcohol and substance abuse will follow up with aftercare facility Assessment: 11/15/19 13:37 alcohol and opiate withdrawal Plan: ativan and methadone regiments
[2019-11-15] MEDS: THIAMINE HCL 100 MG TABLET (FP) PO SCH (21:12)
[2019-11-15] MEDS: MELATONIN 5 MG TABLETS PO SCH (21:12)
[2019-11-16] MEDS ORDERED: chlordiazePOXIDE HCL 10 MG CAPSULE PO ONE (05:00)
[2019-11-16] MEDS: hydrOXYzine PAMOATE 25 MG CAPSULE (FP) PO SCH (05:58)
[2019-11-16] MEDS ORDERED: METHADONE HCL 5 MG TABLET (FOR DETOX USE ONLY) PO ONE (06:00)
[2019-11-16 11:31] VITALS: BP 116/65; PULSE 93; TEMP 98.4
--- NOTE | 2019-11-16 15:45 | DS ---
[facility] Detox Discharge Summary Admission Date: 11/11/19 Discharge Date: 11/16/19 - History Present History: Alcohol Dependence, Cocaine Dependence, Opioid Dependence Pertinent Past History: Hep C - Physical Exam Results Vital Signs: Vital Signs Temperature 98.4 F 11/16/19 09:00 Pulse Rate 93 H 11/16/19 09:00 Respiratory Rate 18 11/16/19 09:00 Blood Pressure 116/65 11/16/19 09:00 O2 Sat by Pulse Oximetry (%) 96 11/16/19 09:00 Alert o x 3 nad oob ambulating with steady gait cardiac:s1 s2, rrr lungs:ctab abdomen:soft,+bs,nt,nd extremities:no edema,skin intact Pertinent Admission Physical Exam Findings: Laboratory Tests 11/11/19 11/11/19 11/12/19 10:50 15:30 08:30 WBC 5.5 RBC 4.51 Hgb 13.8 Hct 42.1 MCV 93.3 MCH 30.6 MCHC 32.9 RDW 15.8 D Plt Count 167 D MPV 12.1 H D PT with INR INR Sodium Potassium Chloride Carbon Dioxide Anion Gap BUN Creatinine Est GFR (CKD-EPI)AfAm Est GFR (CKD-EPI)NonAf Random Glucose Calcium Total Bilirubin AST ALT Alkaline Phosphatase Total Protein Albumin Urine Color Urine Appearance Urine pH Ur Specific [place] Urine Protein Urine Glucose (UA) Urine Ketones Urine Blood Urine Nitrite Urine Bilirubin Urine Urobilinogen Ur Leukocyte Esterase Urine WBC (Auto) Urine RBC (Auto) Urine Casts (Auto) U Epithel Cells (Auto) Urine Bacteria (Auto) Syphilis Serology COVID-19 (DANIELITO) Not detected HIV Ag/Ab Combo Qual Negative 11/12/19 11/12/19 11/14/19 08:30 08:30 07:30 WBC RBC Hgb Hct MCV MCH MCHC RDW Plt Count MPV PT with INR INR Sodium 136 136 Potassium 4.0 4.1 Chloride 98 103 Carbon Dioxide 30 27 Anion Gap 7 L 6 L BUN 9.4 11.9 Creatinine 0.7 0.8 Est GFR (CKD-EPI)AfAm 132.09 125.04 Est GFR (CKD-EPI)NonAf 113.97 107.88 Random Glucose 107 H 116 H Calcium 9.2 9.3 Total Bilirubin 2.2 H 2.0 H AST 433 H 390 H ALT 361 H 373 H Alkaline Phosphatase 163 H 154 H Total Protein 8.0 7.8 Albumin 3.3 L 3.0 L Urine Color Urine Appearance Urine pH Ur Specific [place] Urine Protein Urine Glucose (UA) Urine Ketones Urine Blood Urine Nitrite Urine Bilirubin Urine Urobilinogen Ur Leukocyte Esterase Urine WBC (Auto) Urine RBC (Auto) Urine Casts (Auto) U Epithel Cells (Auto) Urine Bacteria (Auto) Syphilis Serology Non-reactive COVID-19 (DANIELITO) HIV Ag/Ab Combo Qual 11/14/19 11/14/19 07:30 09:15 WBC RBC Hgb Hct MCV MCH MCHC RDW Plt Count MPV PT with INR 18.70 H INR 1.58 H Sodium Potassium Chloride Carbon Dioxide Anion Gap BUN Creatinine Est GFR (CKD-EPI)AfAm Est GFR (CKD-EPI)NonAf Random Glucose Calcium Total Bilirubin AST ALT Alkaline Phosphatase Total Protein Albumin Urine Color Dk yellow Urine Appearance Clear Urine pH 6.0 Ur Specific [place] 1.023 Urine Protein Negative Urine Glucose (UA) Negative Urine Ketones Negative Urine Blood Negative Urine Nitrite Negative Urine Bilirubin Small Urine Urobilinogen 2.0 Ur Leukocyte Esterase Negative Urine WBC (Auto) 4.2 Urine RBC (Auto) 13.3 Urine Casts (Auto) 0.89 U Epithel Cells (Auto) 1.7 Urine Bacteria (Auto) 16.2 Syphilis Serology COVID-19 (DANIELITO) HIV Ag/Ab Combo Qual - Treatment Hospital Course: Detox Protocol Followed, Detoxed Safely, Responded well, Discharged Condition Good, Rehab Referral Accepted Patient has Accepted a Rehab Referral to: [facility], [place], [place] - Medication Discharge Medications: Ambulatory Orders NK [No Known Home Medication] 11/11/19 - Diagnosis (1) Alcohol dependence with withdrawal, uncomplicated Status: Acute (2) Cocaine dependence Status: Acute Qualifiers: Substance use status: uncomplicated Qualified Code(s): F14.20 - Cocaine dependence, uncomplicated (3) Nicotine dependence Status: Acute Qualifiers: Nicotine product type: cigarettes Substance use status: in withdrawal Qualified Code(s): F17.213 - Nicotine dependence, cigarettes, with withdrawal (4) Opioid dependence Status: Acute Qualifiers: Substance use status: in withdrawal Qualified Code(s): F11.23 - Opioid dependence with withdrawal (5) Hepatitis C Status: Chronic - AMA Did Patient Leave Against Medical Advice: No
== END 2019-11-16 09:54 | disposition home or self-care (01) | DRG 773 ==
LOC: YASAS 12:19 → Y5N DETOX 15:00
PROVIDERS: ADMIT Allergy & Immunology; ATTEND Allergy & Immunology
PROC: HZ2ZZZZ Detoxification Services for Substance Abuse Treatment (ICD-10-PCS; principal; 2019-11-11)
DX: F10.230 Alcohol dependence with withdrawal, uncomplicated (principal); F11.23 Opioid dependence with withdrawal; F14.20 Cocaine dependence, uncomplicated; F17.213 Nicotine dependence, cigarettes, with withdrawal; D68.8 Other specified coagulation defects; E80.6 Other disorders of bilirubin metabolism; B18.2 Chronic viral hepatitis C; R74.8 Abnormal levels of other serum enzymes; R74.0 Nonspecific elevation of levels of transaminase and lactic acid dehydrogenase [LDH]; Z59.0 Homelessness
CPT/HCPCS: 36415; 80053; 81003; 85027; 85610; 86780; 87389; 93005; 93010; U0003